=== PATIENT | female | born 1985 | race Caucasian/White ===

== ENCOUNTER → 2017-03-17 | Day surgery (SDC) | payer OTHER ==
[~2017-03-17] VITALS: Ht 175.3 cm; Wt 83.9 kg
[~2017-03-17] MED LIST: AMOXICILLIN500 MG OR; AMOXICILLIN500 MG PO; AUGMENTIN875TAB PO; BACLOFEN20 MG PO; CIPROFLOXACN500 MG PO; DENIES CURRENT MEDS; FIORICET PO; GARCINIA CAMBOG1 TAB; IBUPROFEN600 MG PO; LORTAB 10-325 M1 TAB PO; LORTAB5 PO; MACRODANTIN100 MG OR; MOTRIN800 MG PO; NAPROSYN500 MG PO; NO; NO HOME MEDS; NORCO1 TA2 PO; PERCOCET 5/325M1 TAB PO; ULTRAM50 M1 PO; ZOFRAN4 MG/TAB PO; ZPAK PO
[2017-03-17 13:54] VITALS: BP 123/79
== END | disposition home or self-care (01) | DRG 552 ==
LOC: ORM 08:00
PROVIDERS: ATTEND Anesthesiology Pain Medicine
PROC: 3E0T3BZ Introduction of Anesthetic Agent into Peripheral Nerves and Plexi, Percutaneous Approach (ICD-10-PCS; principal; 2017-03-17)
PROC: 3E0T33Z Introduction of Anti-inflammatory into Peripheral Nerves and Plexi, Percutaneous Approach (ICD-10-PCS; 2017-03-17)
DX: M54.2 Cervicalgia (principal); M54.6 Pain in thoracic spine

== ENCOUNTER 2017-03-31 06:57 | Day surgery (SDC) | payer OTHER ==
[~2017-03-31] VITALS: Ht 175.3 cm; Wt 83.9 kg
[2017-03-31 09:59] VITALS: BP 106/71
[2017-03-31] MEDS ORDERED: NORCO1 TA2 PO (10:07)
== END 2017-03-31 10:20 | disposition home or self-care (01) | DRG 552 ==
LOC: ORM 06:57
PROVIDERS: ATTEND Anesthesiology Pain Medicine
PROC: 3E0T3BZ Introduction of Anesthetic Agent into Peripheral Nerves and Plexi, Percutaneous Approach (ICD-10-PCS; principal; 2017-03-31)
PROC: 3E0T33Z Introduction of Anti-inflammatory into Peripheral Nerves and Plexi, Percutaneous Approach (ICD-10-PCS; 2017-03-31)
DX: M54.2 Cervicalgia (principal); M54.6 Pain in thoracic spine

== ENCOUNTER 2018-04-23 20:58 | Emergency (ER) | payer OTHER ==
[~2018-04-23] VITALS: Ht 175.3 cm; Wt 81.0 kg
[~2018-04-23 20:58] MED LIST changes: +AMITRIPTYLIN50 MG PO; +CYMBALTA30 MG PO; +CYMBALTA60 MG PO; +HYDROCODONE/ACE1 TAB PO; +NEURONTIN600 MG PO; +ONDANSETRON4 MG PO; +ZOLOFT25 MG PO
[2018-04-23 21:59] LABS: INFLUENZA A POSITIVE (NONE DETECT); INFLUENZA B NONE DETECTED (NONE DETECT)
[2018-04-23 22:21] LABS: ALKALINE PHOSPHATASE 89 u/l (38-126); ANION GAP 13 (6-22 (CALC)); BILIRUBIN, TOTAL 0.4 mg/dL (0.0-1.4); BUN 11 mg/dL (7-17); BUN/CREATININE RATIO 19 (12-20 (CALC)); CARBON DIOXIDE 26 mmol/l (22-30); CHLORIDE 103 mmol/l (95-108); CREATININE 0.5 mg/dL (0.5-1.0); GFR > 60 ML/MIN (>=60 (CALC)); GFR FOR AFR.AMER. > 60 ML/MIN (>=60 (CALC)); POTASSIUM 3.9 mmol/l (3.5-5.1); SODIUM 139 mmol/l (137-146); TOTAL PROTEIN 6.9 g/dL (6.3-8.2)
[2018-04-23 22:24] LABS: HEMATOCRIT 31.6 % (37.0-47.0); HEMOGLOBIN 10.4 g/dl (12.0-16.0); MEAN CELL VOLUME 103.6 fL CALC (80.0-100.0); MEAN CORPUSCULAR HGB 34.1 pG CALC (26.0-32.0); MEAN CORPUSCULAR HGB CONC 32.9 g/L CALC (32.0-36.0); PLATELET COUNT 129 thou/uL (130-400); RED BLOOD COUNT 3.05 mill/uL (4.20-5.60); RED CELL DISTRI WIDTH 17.1 % (11.5-15.5)
[2018-04-23 22:25] LABS: SGOT/AST 46 u/l (14-36)
[2018-04-23 22:26] LABS: BAND 20 % (0-8); MANUAL DIFFERENTIAL YES
[2018-04-23 22:53] LABS: URINE BILIRUBIN - DIPSTICK NEGATIVE (NEGATIVE); URINE BLOOD DIPSTICK TRACE-INTACT (NEGATIVE); URINE COLOR YELLOW; URINE GLUCOSE - DIPSTICK NEGATIVE (NEGATIVE); URINE KETONE NEGATIVE (NEGATIVE); URINE LEUK ESTERASE NEGATIVE (Negative); URINE NITRITE - DIPSTICK NEGATIVE (Negative); URINE PROTEIN - DIPSTICK NEGATIVE (NEG-TRACE); URINE SPECIFIC GRAVITY 1.015; URINE UROBILINOGEN - DIPSTICK 0.2 E.U./dL (0.2)
[2018-04-23 22:57] LABS: URINE CLARITY CLEAR
[2018-04-24 00:10] VITALS: BP 101/56
[2018-04-24 10:37] LABS: IMMATURE GRANULOCYTES 6.5 % (0.0-5.0)
== END 2018-04-24 00:10 | disposition short-term general hospital (02) ==
LOC: ED 20:58
PROVIDERS: Emergency Medicine
DX: A41.9 Sepsis, unspecified organism (principal); J10.1 Influenza due to other identified influenza virus with other respiratory manifestations; D72.823 Leukemoid reaction; C50.911 Malignant neoplasm of unspecified site of right female breast; F17.200 Nicotine dependence, unspecified, uncomplicated; Z92.21 Personal history of antineoplastic chemotherapy; R50.9 Fever, unspecified; J02.9 Acute pharyngitis, unspecified; R05 Cough; R25.1 Tremor, unspecified
CPT/HCPCS: G9019

== ENCOUNTER → 2018-08-02 | Outpatient (REF) | payer OTHER ==
[~2018-08-02] MED LIST changes: +LEVOCETIRIZINE D5 MG; +MULTIVITAMI9 PO; +PRILOSEC20 MG PO; +[UNRECOGNIZED DRUG - OTHER]
[2018-08-02 11:12] VITALS: BP 137/90
== END | disposition home or self-care (01) | DRG 951 ==
LOC: PAIN/MGT 10:59
PROVIDERS: ATTEND Anesthesiology Pain Medicine
DX: Z09 Encounter for follow-up examination after completed treatment for conditions other than malignant neoplasm (principal)

== ENCOUNTER 2018-12-17 08:16 | Emergency (ER) | payer OTHER ==
[~2018-12-17] VITALS: Ht 175.3 cm; Wt 80.0 kg
[2018-12-17] MEDS ORDERED: GENTAMICIN15 ML/BTL OD (08:25)
[2018-12-17] MEDS ORDERED: (None)3.5 GM OD (08:25)
[2018-12-17 08:28] VITALS: BP 118/56
== END 2018-12-17 08:36 | disposition home or self-care (01) ==
LOC: ED 08:16
DX: H10.9 Unspecified conjunctivitis (principal); F17.200 Nicotine dependence, unspecified, uncomplicated

== ENCOUNTER 2020-10-12 19:42 | Emergency (ER) | payer OTHER ==
[~2020-10-12 19:42] MED LIST changes: +(None)3.5 GM OD; +GENTAMICIN15 ML/BTL OD
[2020-10-12 20:40] LABS: HEMATOCRIT 38.3 % (37.0-47.0); HEMOGLOBIN 12.4 g/dl (12.0-16.0); IMMATURE GRANULOCYTES 0.4 % (0.0-5.0); MEAN CELL VOLUME 93.6 fL CALC (80.0-100.0); MEAN CORPUSCULAR HGB 30.3 pG CALC (26.0-32.0); MEAN CORPUSCULAR HGB CONC 32.4 g/dL CAL (32.0-36.0); NEUT# 5.3 thou/uL (2.00-7.15); RED BLOOD COUNT 4.09 mill/uL (4.20-5.60); RED CELL DISTRI WIDTH 12.5 % (11.5-15.5)
[2020-10-12 21:00] VITALS: BP 118/70
== END 2020-10-12 21:24 | disposition home or self-care (01) ==
LOC: ED 19:42
PROVIDERS: Family Medicine
DX: J02.9 Acute pharyngitis, unspecified (principal); F17.200 Nicotine dependence, unspecified, uncomplicated; C50.919 Malignant neoplasm of unspecified site of unspecified female breast

== ENCOUNTER 2021-01-18 20:30 | Emergency (ER) | payer OTHER ==
[2021-01-18] MEDS ORDERED: WELLBUTRIN100 M2 PO (21:05)
[2021-01-18 21:31] LABS: HEMATOCRIT 41.3 % (37.0-47.0); HEMOGLOBIN 13.3 g/dl (12.0-16.0); IMMATURE GRANULOCYTES 0.1 % (0.0-5.0); MEAN CELL VOLUME 94.5 fL CALC (80.0-100.0); MEAN CORPUSCULAR HGB 30.4 pG CALC (26.0-32.0); MEAN CORPUSCULAR HGB CONC 32.2 g/dL CAL (32.0-36.0); NEUT# 6.35 thou/uL (2.00-7.15); RED BLOOD COUNT 4.37 mill/uL (4.20-5.60); RED CELL DISTRI WIDTH 12.3 % (11.5-15.5)
[2021-01-18 21:39] LABS: ALBUMIN 4.2 g/dL (3.2-5.0); ALKALINE PHOSPHATASE 105 u/l (38-126); ANION GAP 12 (6-22 (CALC)); BILIRUBIN, TOTAL 0.3 mg/dL (0.0-1.4); BUN 10 mg/dL (7-17); BUN/CREATININE RATIO 14 (12-20 (CALC)); CARBON DIOXIDE 29 mmol/l (22-30); CHLORIDE 100 mmol/l (95-108); CREATININE 0.7 mg/dL (0.5-1.0); GFR > 60 ML/MIN (>=60 (CALC)); GFR FOR AFR.AMER. > 60 ML/MIN (>=60 (CALC)); POTASSIUM 3.8 mmol/l (3.5-5.1); SGOT/AST 32 u/l (14-36); SODIUM 137 mmol/l (137-146); TOTAL PROTEIN 7.7 g/dL (6.3-8.2)
[2021-01-18 21:42] LABS: D-DIMER 0.29 mg/L (0.19-0.60); INTERNATIONAL NORMALIZED RATIO 0.9 RATIO (0.7-1.3); PROTHROMBIN TIME 9.3 SECONDS (9.0-12.5)
[2021-01-18 21:51] LABS: MYOGLOBIN 19 ng/mL (0 - 62)
[2021-01-18] MEDS ORDERED: ROBITUSSIN AC10 ML PO (22:50)
[2021-01-18] MEDS ORDERED: TORADOL PO (22:50)
[2021-01-18 22:58] VITALS: BP 98/52
== END 2021-01-18 23:00 | disposition home or self-care (01) ==
LOC: ED 20:30
PROVIDERS: Family Medicine
DX: R07.81 Pleurodynia (principal); C50.919 Malignant neoplasm of unspecified site of unspecified female breast; F17.200 Nicotine dependence, unspecified, uncomplicated; Z20.822 Contact with and (suspected) exposure to COVID-19

== ENCOUNTER 2021-02-04 13:09 | Emergency (ER) | payer OTHER ==
[~2021-02-04] VITALS: Ht 175.3 cm; Wt 75.0 kg
[~2021-02-04 13:09] MED LIST changes: +ROBITUSSIN AC10 ML PO; +TORADOL PO; +WELLBUTRIN100 M2 PO
[2021-02-04 14:36] VITALS: BP 121/87
== END 2021-02-04 15:43 | disposition left against medical advice (07) | DRG 951 ==
LOC: ED 13:09 → LWOBS 15:42
DX: Z53.21 Procedure and treatment not carried out due to patient leaving prior to being seen by health care provider (principal)

== ENCOUNTER 2021-04-02 17:19 | Emergency (ER) | payer OTHER ==
[~2021-04-02] VITALS: Ht 175.3 cm; Wt 93.6 kg
[2021-04-02] MEDS ORDERED: TRAMADOL HYDROC50 M1 PO (18:52)
[2021-04-02 19:00] VITALS: BP 127/82
== END 2021-04-02 19:00 | disposition home or self-care (01) ==
LOC: ED 17:19
DX: M54.41 Lumbago with sciatica, right side (principal); F17.210 Nicotine dependence, cigarettes, uncomplicated; Z88.8 Allergy status to other drugs, medicaments and biological substances; Z85.3 Personal history of malignant neoplasm of breast

== ENCOUNTER 2021-08-19 19:58 | Emergency (ER) | payer OTHER ==
[~2021-08-19] VITALS: Ht 175.3 cm; Wt 95.0 kg
[~2021-08-19 19:58] MED LIST changes: +TRAMADOL HYDROC50 M1 PO
[2021-08-19 21:16] VITALS: BP 126/80
[2021-08-19 21:30] VITALS: BP 117/75
[2021-08-19] MEDS ORDERED: FLEXERIL5 M1 PO (23:23)
[2021-08-19] MEDS ORDERED: IBUPROFEN600 MG PO (23:23)
[2021-08-20 00:30] VITALS: BP 117/75
== END 2021-08-19 23:25 | disposition home or self-care (01) | DRG 552 ==
LOC: ED 19:58
DX: S16.1XXA Strain of muscle, fascia and tendon at neck level, initial encounter (principal); S29.012A Strain of muscle and tendon of back wall of thorax, initial encounter; S20.212A Contusion of left front wall of thorax, initial encounter; F17.200 Nicotine dependence, unspecified, uncomplicated; V49.40XA Driver injured in collision with unspecified motor vehicles in traffic accident, initial encounter; Z85.3 Personal history of malignant neoplasm of breast